=== PATIENT | female | born 1950 | race Caucasian/White ===

== ENCOUNTER 2024-01-09 12:00 | Outpatient (RCR) | payer MEDICARE, SELFPAY ==
[2024-01-09 12:08] VITALS: BMI 32.8
[2024-01-09 12:09] VITALS: BP 118/82; PULSE 80; TEMP 36.3
--- NOTE | 2024-01-09 13:21 | PC.NURSE ---
Tran came to my office and stated she is not going to be able to come to the program as she just read the air quality is going to be poor along with the humidity which exacerbates her COPD sxs. She was anxious when she came into my office and presented with some wheezing. Practicing pursed lip breathing. When she slowed her breathing down she felt better. She stated she feels better when she is home as she has the air conditioning on high and feels it is not cold enough for her here. Plans on using her nebulizer when she gets home. Her is coming to pick her up. She is drinking cold water. She stated she is safe and is going to call Gregoria to reschedule.
== END 2024-01-09 23:59 | disposition home or self-care (01) ==
LOC: HO.PHPA 12:00
PROVIDERS: Visit Provider Psychiatry & Neurology Psychiatry
DX: F33.2 Major depressive disorder, recurrent severe without psychotic features (principal); F41.1 Generalized anxiety disorder; F10.21 Alcohol dependence, in remission
CPT/HCPCS: 90791; 90853

== ENCOUNTER → 2024-03-26 11:15 | Outpatient (BNV) | payer MEDICARE, SELFPAY | PROVIDERS: Visit Provider Psychiatry & Neurology Psychiatry | DX: F33.2 Major depressive disorder, recurrent severe without psychotic features (principal); F41.8 Other specified anxiety disorders; R29.818 Other symptoms and signs involving the nervous system; R41.89 Other symptoms and signs involving cognitive functions and awareness | CPT/HCPCS: 90792; 90834 ==

== ENCOUNTER 2024-04-03 11:15 | Outpatient (RCR) | payer MEDICARE, SELFPAY ==
[2024-03-26 09:39] VITALS: BP 124/82; PULSE 80; TEMP 37.1
[2024-03-26 09:42] VITALS: BMI 31.7
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
--- NOTE | 2024-03-28 15:04 | HO.PHP ---
Client's case has been opened and reviewed in team
--- NOTE | 2024-04-02 22:25 | HO.PHPPROGNO ---
Subjective Subjective Date of Service: 04/02/24 Reason For Visit: MDD Interim History: Patient seen for follow-up, anticipating discharge at the end of program today.? Reports no acute issues or concerns. Medication compliant, medications well-tolerated. Denies any adverse effects.? I'd like to leave tomorrow . Patient is requesting to finish up her time here at [facility]. I'm feeling good...back to where I was about a year ago . Feels she has gotten as much from the program as she needed. She feels the Rexulti is working in full now, and has stabilizer. Reports energy is good, sleeping well. Had been sleeping 15-16 hrs before, now normal amount of 8 or 9 hours. APpetite intact. SHe reports enjoying her weekend I cooked and cooked . Has not cooked in a long time, but is feleing more motivated. SHe notes not wanting to miss any further soccer games of her grandchildren. She reports an upcoming appointment with her provider Stiven Cardona. She still has a rough, sardonic edge but appears in good spirits and at baseline. She also admits there is a a peer in groups that annoys her but she has tolerated all last week and this week. She could not be encouraged to stay, Yep, no thanks, I'm good Mood is stable.? Denies any hopelessness or SI. Denies thoughts of harming self or others at this time. Denies any aggressive ideation or HI. Denies any paranoia or AH or VH. Sleep, appetite, energy stable. Medication Compliance: Yes Side effects from medications: No Attending Groups: Yes Mental Status Exam Mental Status Exam Narrative: Alert, oriented, in no acute distress. Calm, cooperative. Mood stable, affect bright, irritable edge, appropriate, no lability. Speech normal. Thought process linear, coherent, more goal-directed. Thought content related to stressors, future-oriented, denies any helplessness, hopelessness or SI.? No aggressive ideation or HI. No paranoia or delusional content elicited. No evidence of psychosis. Insight and judgment fair-good. Diagnostics Vital Signs (24Hr): BMI result Body Mass Index 31.7 Assessment & Plan Assessment & Plan (1) MDD (major depressive disorder), recurrent severe, without psychosis: Status: Acute Code(s): F33.2 - Major depressive disorder, recurrent severe without psychotic features (2) Other specified anxiety disorders: Status: Acute Code(s): F41.8 - Other specified anxiety disorders (3) Neurocognitive deficits: Status: Acute Code(s): R29.818 - Other symptoms and signs involving the nervous system; R41.89 - Other symptoms and signs involving cognitive functions and awareness (4) Functional neurological symptom disorder with attacks or seizures: Status: Acute Code(s): F44.5 - Conversion disorder with seizures or convulsions (5) PTSD (post-traumatic stress disorder): Status: Acute Code(s): F43.10 - Post-traumatic stress disorder, unspecified (6) Alcohol dependence in sustained full remission: Status: Acute Code(s): F10.21 - Alcohol dependence, in remission Plan Patient requesting discharge AMA No acute safety concerns, appears to be close to or approaching baseline Feels she is doing well and woudl like to prioritize time with family over continued participation PLans to discharge from [facility] after completing the day today Continue regular medications Refills sent to pharmacy - brexpiprazole Will defer further medication management to outpatient provider Safety plan reviewed Patient educated on: diagnosis, medication risk/benefits and substance abuse Informed Consent: understands Reason for contiued partial hosp. stay Substantial Risk for: stable for discharge and other Certification I certify that partial hospital treatment is medically necessary due to the symptoms and problems resulting from the patient's mental illness and the failure to treat the patient at the partial hospital level of care would likely result in the patient requiring inpatient psychiatric care which could not be prevented at a less intensive level of care. Total time managing care of this patient today _45___ minutes. Discharge Plan Discharge Attending provider: Lisa Chew Medications: Continued teriparatide [Forteo] 20 mcg/dose (600mcg/2.4mL) Pen Injector 20 mcg SUBCUT DAILY Patient Comments: New medication patient has not started. Filled 03/25/24. Rexulti 0.25 mg Tablet 0.25 mg PO DAILY Qty: 30 0RF losartan 50 mg tablet 50 mg PO DAILY gabapentin 400 mg capsule 1,200 mg PO BEDTIME sertraline 100 mg tablet 200 mg PO DAILY hydroxyzine HCl 50 mg tablet 50 mg PO TID PRN (Reason: Anxiety) amlodipine 5 mg tablet 5 mg PO DAILY albuterol sulfate 90 mcg/actuation HFA aerosol inhaler 2 puff inhalation Q4H PRN (Reason: wheezing) lacosamide 200 mg tablet 200 mg PO BID Trelegy Ellipta 100-62.5-25 mcg blister with device 1 ea INHALATION DAILY Stand Alone Forms: Patient Portal Discharge page Patient Education: Breathing Techniques (GEN), Depression in Older Adults (DC) Print Language: Mauritanian
== END 2024-04-03 23:59 | disposition home or self-care (01) ==
LOC: HO.PHPA 11:15
PROVIDERS: Visit Provider Psychiatry & Neurology Psychiatry
DX: F33.2 Major depressive disorder, recurrent severe without psychotic features (principal); F41.8 Other specified anxiety disorders; R29.818 Other symptoms and signs involving the nervous system; R41.89 Other symptoms and signs involving cognitive functions and awareness; F44.5 Conversion disorder with seizures or convulsions; F43.10 Post-traumatic stress disorder, unspecified; F10.21 Alcohol dependence, in remission
CPT/HCPCS: 90791; 90853

== ENCOUNTER 2024-09-26 09:10 | Outpatient (REF) | payer MEDICARE, SELFPAY ==
[2024-09-26 11:02] LABS: MANUAL DIFF FLAG NO
[2024-09-26 11:17] LABS: Basophils Absolute Auto 0.1 X10*3/uL (0.0-0.2); Basophils Percent Auto 0.6 % (0-2); Eosinophils Absolute Auto 0.5 X10*3/uL (0.0-0.4); Eosinophils Percent Auto 4.3 % (0-4); Hematocrit 40.1 % (37.0-47.0); Hemoglobin 13.4 g/dl (12.0-16.0); Imm Gran Abs Auto 0.05 X10*3/uL (0.00-0.03); Imm Gran Pct Auto 0.5 % (0.0-0.4); Lymphocytes Absolute Auto 2.2 X10*3/uL (1.2-4.9); Lymphocytes Percent Auto 20.3 % (20-40); Mean Corpuscular HGB Conc 33.4 g/dl (31.0-35.0); Mean Corpuscular Volume 86.8 fL (80.0-98.0); Mean Platelet Volume 10.3 fL (9.4-12.3); Monocytes Absolute Auto 0.9 X10*3/uL (0.1-1.2); Monocytes Percent Auto 8.6 % (2-11); Neutrophils Percent Auto 65.7 % (45-73); Platelet Count 269 X10*3/uL (160-400); Red Blood Count 4.62 X10*6/uL (4.20-5.50); White Blood Count 10.6 X10*3/uL (4.8-10.8)
[2024-09-26 11:20] LABS: Appearance Urine Clear; Color Urine Yellow; Glucose Urine UA Negative (Negative); Leukocyte Esterase Urine Small (1+) (Negative); Nitrite Urine Negative (Negative); PH 5.5 (5.0-9.0); UMIC TRIGGER UACC YES; Urine Blood Negative (Negative); Urine Ketones Negative (Negative); Urine Protein Negative (Neg-Trace)
[2024-09-26 11:38] LABS: Anion Gap 12 (12-20); Blood Urea Nitrogen 27 mg/dL (9-16); Calcium 9.4 mg/dL (8.4-10.2); Carbon Dioxide 27 mmol/L (22-29); Chloride 103 mmol/L (96-108); Estimated Glomerular Filt Rate 40; Glucose Random 101 mg/dL (60-115); Phosphorus 3.4 mg/dL (2.7-4.5); Potassium 4.4 mmol/L (3.3-5.1); Sodium 138 mmol/L (135-145)
[2024-09-26 11:38] LABS: Bacteria Urine None Seen (None Seen); Hyaline Casts Urine 0-2 /LPF (0-2); RBC Urine 0-2 /HPF (0-2); UACC Culture Trigger YES; WBC Urine 0-5 /HPF (0-5)
[2024-09-26 11:47] LABS: Parathyroid Hormone Intact 132.6 pg/mL (8.7-77.1)
[2024-09-26 11:49] LABS: Vitamin D 25-OH Total 60.9 ng/mL (>30)
== END 2024-09-26 09:11 | disposition home or self-care (01) ==
LOC: HO.WFDLDS 09:10
PROVIDERS: Visit Provider Internal Medicine
DX: N17.9 Acute kidney failure, unspecified (principal)
CPT/HCPCS: 36415; 80048; 81001; 82306; 82550; 83970; 84100; 84300; 85025; 87086

== ENCOUNTER 2024-11-18 08:39 | Outpatient (REF) | payer MEDICARE, SELFPAY ==
--- OUTSIDE RECORDS SUMMARY | 2024-11-18 08:47 | XMS_ITS | Referral Summary ---
Author Organization [facility] Address [address] [place] [address] Care Team Providers Care Fire Watchman Name Role Phone JessicaDev Filipe Primary Care Provider [phone] Allergies No known active allergies Social History Tobacco Use Types Packs/Day Years Used Date Smoking Tobacco: Never Assessed Comments No Sex and Gender Information Value Date Recorded Sex Assigned at Not on file Legal Sex Female 6:43 AM EDT Gender Identity Not on file Sexual Orientation Not on file Last Filed Vital Signs Vital Sign Reading Time Taken Comments Blood Pressure 138/66 06/25/2022 3:30 PM EST Pulse 93 06/25/2022 3:30 PM EST Temperature 37.1 ??C (98.7 ??F) 06/25/2022 1:03 PM ES T Respiratory Rate 20 06/25/2022 3:30 PM EST Oxygen Saturation 92% 06/25/2022 3:30 PM EST Inhaled Oxygen Concentration - - Weight - - Height - - Body Mass Index - - Plan of Treatment Not on file Insurance [facility] Care Teams Fire Watchman Relationship Specialty Start Date End Date Dev Lopez [address] [place] [id number] PCP - General Internal Medicine 06/25/22
--- OUTSIDE RECORDS SUMMARY | 2024-11-18 08:47 | XMS_ITS | Encounter Summary ---
Author Organization [email or web address] [facility] Address [address] [place] [address] [address] [place] [address] Care Team Providers Care Clothes Drier Repairer Name Role Phone Unavailable Primary Care Provider Unavailabl e Encounter Details Date Type Department Care Team (Late st Contact Info) Description 03/01/2023 Abstract [facility] [address] [place] [address] Bushra Shepherd DMD Social History Tobacco Use Types Packs/Day Years Used Date Smoking Tobacco: Former Cigarettes Smokeless Tobacco: Former Comments Unknown Sex and Gender Information Value Date Recorded Sex Assigned at Female 05/02/2022 10:26 AM EDT Legal Sex Female 10:26 AM EDT Gender Identity Female 01/27/2023 9:14 AM EDT Sexual Orientation Choose not to disclose 2022 9:14 AM EDT documented as of this encounter Plan of Treatment Upcoming Encounters Date Type Department Care Team (Late st Contact Info) Description 11/21/2024 8:00 AM EDT Office Visit [facility] [address] [place] [address] Ugo Richardelendonna [address] [place] [address] 04/21/2025 8:00 AM EDT Office Visit [facility] [address] [place] [address] Diana Farmer documented as of this encounter Visit Diagnoses Not on filedocumented in this encounter
--- OUTSIDE RECORDS SUMMARY | 2024-11-18 08:47 | XMS_ITS | Clinical Summary ---
Author Organization [employer] Address [address] [facility] [address] [place] [address] Care Team Providers Care Costumer Assistant Name Role Phone Unavailable Primary Care Provider Unavailabl e Allergies Active Allergy Reactions Criticality Noted Date Comments Aripiprazole 01/27/2023 Codeine Diarrhea 06/01/2009 Other reaction(s): abdominal pain Duloxetine Other 06/01/2009 seizure-like activity Duloxetine Hcl 06/08/2023 Other reaction(s): out of body experience Erythromycin Rash Low 06/08/2023 Other reaction(s): loose stools Gentamicin 06/08/2023 Other reaction(s): full body rash Lamotrigine 06/08/2023 Other reaction(s): full body rash Oxybutynin 06/08/2023 Other reaction(s): light headed fall down Venlafaxine Other 06/01/2009 Other reaction(s): confusion outer-body experience Medications albuterol 108 (90 Base) MCG/ACT inhaler inhale 2 puffs Inhalation 4 times a day as needed Wheezing/Shortn ess of Breath 2 Active Trelegy Ellipta 100-62.5-25 MCG/ACT aerosol powder Inhale 1 puff in the morning. 3 Active sertraline (Zoloft) 100 MG tablet TAKE 2 TABLETS BY MOUTH EVERY DAY 0 Active hydrOXYzine HCl (Atarax) 50 MG tablet Take 50 mg by mouth if needed in the morning, at noon, and at bedtime. 3 Active amLODIPine (Norvasc) 5 MG tablet Take 1 tablet by mouth. 3 Active lacosamide (Vimpat) 200 mg tablet tablet Take 200 mg by mouth. 3 Active gabapentin (Neurontin) 400 MG capsule take 2 capsules By Mouth Daily at bedtime 10/30/202 3 Active losartan (Cozaar) 50 MG tablet Take 50 mg by mouth in the morning. 3 Active Sodium Fluoride (PreviDent 5000 Booster Plus) 1.1 % paste Apply 1 Application. to teeth 2 times daily. 112 g 3 4 Active Rexulti 0.25 MG tablet Take 1 tablet by mouth Once per day. 4 Active B-D UF III MINI PEN NEEDLES 31G X 5 MM misc use daily with Forteo pen 5 Active lurasidone (Latuda) 40 MG tablet Take 1 tablet by mouth once a day with at least 350 calories of food 5 Active predniSONE (Deltasone) 20 MG tablet TAKE 2 TABLETS BY MOUTH DAILY FOR 5 DAYS WITH food 5 Active rosuvastatin (Crestor) 40 MG tablet Take 40 mg by mouth. 5 Active teriparatide (Forteo) injection See Instructions, injecy 20 mcg under the skin once Daily,rotate injection sites, # 2.4 mL, 11 Refills, Maintenance, 09/02/24 6:47:00 PM EST, [facility], 162, cm, 08/26/24 13:06:00 EST, Height, 81.8, kg, 07/16/24 13:54:00 EST, Dry Weight 4 Active Active Problems Problem Noted Date Diagnosed Date Long COVID 10/24/2024 Rotator cuff arthropathy of right shoulder 10/15 Anxiety 03/11/2024 Balance problem 03/11/2024 Chronic obstructive lung disease 03/11/2024 Class 1 obesity 03/11/2024 Colitis 03/11/2024 COVID 03/11/2024 Elevated serum creatinine 03/11/2024 Esophageal dysmotility 03/11/2024 Exposure to COVID-19 virus 03/11/2024 Hematochezia 03/11/2024 Hearing loss 03/11/2024 HTN (hypertension) 03/11/2024 Hypercalcemia 03/11/2024 Lumbar disc disorder 03/11/2024 Major depression 03/11/2024 Memory loss 03/11/2024 Migraine 03/11/2024 Mitral valve regurgitation 03/11/2024 Multiple closed fractures of ribs of left side 0 03/11/2024 Multiple nodules of lung 03/11/2024 Osteoporosis, postmenopausal 03/11/2024 Pancolitis 03/11/2024 Periodic limb movement disorder 03/11/2024 Restless leg 03/11/2024 Pneumonia 03/11/2024 Pubic bone fracture 03/11/2024 Retinal hemorrhage 03/11/2024 Seizure disorder 03/11/2024 Tachycardia 03/11/2024 Urge incontinence of urine 03/11/2024 Dental calculus 03/07/2024 Dental plaque 03/07/2024 Closed extraarticular fracture of distal radius 09/11/2018 Overview (10/24/2024): Problem Code: S52.551P; Problem Code Type: ICD-10; Status: 'A'; Closed fracture of third metatarsal bone of righ t foot 04/25/2017 Overview (10/24/2024): Problem Code: S92.334A; Problem Code Type: ICD-10; Status: 'A'; Closed trimalleolar fracture 03/14/2017 Overview (10/24/2024): Problem Code: S82.851D; Problem Code Type: ICD-10; Status: 'A'; Resolved Problems Problem Noted Date Diagnosed Date Resolved Date Obstructive sleep apnea syndrome 03/11/2024 10/14/2024 Encounters Date Type Department Care Team Description 10/24/2024 8:00 AM EDT Office Visit [facility] [address] [place] [address] Deloris Richard 10/14/2024 9:00 AM EDT Office Visit [facility] [address] [place] [address] Diana Farmer from Last 3 Months Social History Tobacco Use Types Packs/Day Years Used Date Smoking Tobacco: Former Cigarettes Smokeless Tobacco: Former Tobacco Cessation:Counseling Given: Not Answered Alcohol Use Standard Drinks/Week Comments Defer 0 (1 standard drink = 0.6 oz pur e alcohol) Comments Unknown Sex and Gender Information Value Date Recorded Sex Assigned at Female 05/02/2022 10:26 AM EDT Legal Sex Female 10:26 AM EDT Gender Identity Female 01/27/2023 9:14 AM EDT Sexual Orientation Choose not to disclose 2022 9:14 AM EDT Last Filed Vital Signs Vital Sign Reading Time Taken Comments Blood Pressure 120/80 10/24/2024 8:10 AM EDT Pulse 65 03/07/2024 8:06 AM EDT Temperature - - Respiratory Rate - - Oxygen Saturation - - Inhaled Oxygen Concentration - - Weight - - Height - - Body Mass Index - - Plan of Treatment Upcoming Encounters Date Type Department Care Team (Late st Contact Info) Description 11/21/2024 8:00 AM EDT Office Visit [facility] [address] [place] [address] Ugo Richardelendonna [address] [place] [address] 04/21/2025 8:00 AM EDT Office Visit [facility] [address] [place] [address] Diana Farmer Health Maintenance Due Date Last Done Comments CT Colonography 1949 Colonoscopy 1949 Colorectal Cancer Screening 1949 Depression Screening 1949 FIT DNA/Cologuard 1949 FIT 1949 FOBT 1949 Lipid Panel 1949 SDOH Screening 1949 Sigmoidoscopy 1949 Alcohol/Substance Use Screening 1961 Hepatitis C Screening 1967 DTaP/Tdap/Td Vaccines (1 - Tdap) 02/29/1968 Zoster Vaccines (2 of 3) 08/11/2013 06/16/2013 RSV Patients and Patients Aged 60 years or older (1 - 1-dose 75+ series) 02/29/2024 COVID-19 Vaccine ( season) 2024 03/14/2024, 05/11/2023, 04/16/2022, Additional history exists Dental Oral Exam 04/16/2025 10/14/2024, 11/2023, 06/06/2023, Additional history exists Dental Prophylaxis 04/16/2025 10/14/2024, 0 03/07/2024, 06/08/2023, Additional history exists Dental X-Ray: Bitewings 10/15/2025 10/15/19, 06/06/2023, 04/01/2014 Tobacco Screening 10/24/2025 10/24/2024 Dental X-Ray: Full Mouth 06/07/2026 06/06/2023, 03/05 Pneumococcal Vaccine: 50+ Years Completed 05/11/2023, 04/24/2015 Influenza Vaccine Completed 03/14/2024, , 04/16/2022, Additional history exists HIB Vaccines Aged Out No longer eligi ble based on patient's age to complete this topic HPV Vaccines Aged Out No longer eligi ble based on patient's age to complete this topic Hepatitis A Vaccines Aged Out No long er eligible based on patient's age to complete this topic Hepatitis B Vaccines Aged Out No long er eligible based on patient's age to complete this topic IPV Vaccines Aged Out No longer eligi ble based on patient's age to complete this topic Meningococcal B Vaccine Aged Out No l onger eligible based on patient's age to complete this topic Meningococcal Vaccine Aged Out No jasmina josefa eligible based on patient's age to complete this topic RSV under 20 months Aged Out No longe r eligible based on patient's age to complete this topic Rotavirus Vaccines Aged Out No longer eligible based on patient's age to complete this topic Procedures Procedure Name Priority Date/Time Associated Diagnosis Comments 28 MOB RESIN-BASED COMPOSITE - 3 SURF, POSTERIOR Routine 10/24/2024 8:00 AM EDT CASE PRESENTATION, DETAILED AND EXTENSIVE TREATMENT PLANNING Routine 10/24/2024 8:00 AM EDT PERIODIC ORAL EVALUATION - ESTABLISHED PATIENT Routine 10/14/2024 9:00 AM EDT INTRAORAL - PERIAPICAL EACH ADDITIONAL RADIOGRAPHIC IMAGE Routine 10/14/2024 9:00 AM EDT INTRAORAL - PERIAPICAL FIRST RADIOGRAPHIC IMAGE Routine 10/14/2024 9:00 AM EDT BITEWINGS - 2 RADIOGRAPHIC IMAGES Routine 10/14/2024 9:00 AM EDT ORAL HYGIENE INSTRUCTIONS Routine 2024 9:00 AM EDT CASE PRESENTATION, DETAILED AND EXTENSIVE TREATMENT PLANNING Routine 10/14/2024 9:00 AM EDT PROPHYLAXIS - ADULT Routine 10/14/2024 9 :00 AM EDT INTRAORAL - COMPLETE SERIES OF RADIOGRAPHIC IMAGES Routine 06/06/2023 8:00 AM EST from Last 3 Months or Most Recently Relevant to Health Maintenance Insurance [address] [place] [address] DENTAL - HSN PARTIAL (MEDICAID) [address] [place] [address] [place] [id number] [address] [place] [address] [place] [address]
--- OUTSIDE RECORDS SUMMARY | 2024-11-18 08:47 | XMS_ITS | Data Portability ---
Author Organization [place] - [facility], [facility] Address [address] [place] [address] Assessment No assessment recorded. Plan of Treatment Reminders Order Date Submit Date Provider Last Modified By Organization Details Last Modified Time Details Appointments None recorded. Lab None recorded. Referral physical therapist referral - R shldr painrom 2024 025 [employer] [facility] - [address], [address], [place], [address], 5 10:52:51 Procedures None recorded. Surgeries None recorded. Imaging XR, shoulder, 2 or more view - 4v R shldr. room 212 2024 025 [facility], [address], [address], [place], [address], 5 10:52:51 XR, cervical spine, 1 view - cspine. room [facility] 2024 025 [employer] [facility], [address], [address], [place], [address], 5 10:52:51 Medication Orders None recorded. Patient TargetsNo targets recorded. Patient InstructionsNo instructions recorded. Reason for Referral Physical Therapist Referral for Pain of right shoulder joint R shldr painrom Referring Physician: Kali Hernandez, Orthopedic Surgery, Encounter Date: 10/15/2024 Results Created Date Observation Date Name Description Value Unit Range Abnormal Flag Note LastModifiedBy Organization Detail LastModifiedTime 10/16/19 25 10/15/2024 XR, cervi lidya spine , 1 view [email or web address] ?Encry pted=s hAaTro YD8dLq bEUv6g %2BXZw aYqtaq 0bqfl% 2Fg9IQ a4ajBk vP9nXo QUaueC m3YtLR FvZlgJ JJ8mAn HZtai3 6o3601 AC0KqY 3uMU6u nKiQtr MwF INTERFACE [facility] [address], [place], [address], 10/15/2024 10:26:50 10/16/19 25 10/15/2024 XR, cervi lidya spine , 1 view [email or web address]:/ [email or web address] ?Encry pted=s hAaTro YD8dLq bEUv6g %2BXZw aYqtaq 0bqfl% 2Fg9IQ a4ajBk vP9nXo QUaueC m3YtLR FvZlgJ JJ8mAn HZtai3 0f7643 AC0KqY 3uMU6u nKiQtr MwF INTERFACE [facility] [address], [place], [address], 10/15/2024 10:26:52 10/16/19 25 10/15/2024 XR, shoul harvey, 2 or more view [email or web address]:/ [email or web address] ?Encry pted=s hAaTro YD8dLq bEUv6g %2BXZw aYqtaq 0bqfl% 2Fg9IQ a4ajBk vP9nXo QUaueC m3YtLR FvZlgJ JJ8mAn HZtai3 3q2998 AC0KqY 3uMU6u mKiQtr MwF INTERFACE [facility] [address], [place], [address], 10/15/2024 10:29:18 10/16/19 25 10/15/2024 XR, shoul harvey, 2 or more view [email or web address] ?Encry pted=s hAaTro YD8dLq bEUv6g %2BXZw aYqtaq 0bqfl% 2Fg9IQ a4ajBk vP9nXo QUaueC m3YtLR FvZlgJ JJ8mAn HZtai3 5z0014 AC0KqY 3uMU6u mKiQtr MwF INTERFACE [facility] [address] [facility] [address], [place], [address], 10/15/2024 10:29:20 Result Notes None recorded. Problems Name Problem SNOMED Code Status Onset Date Resolution Date Notes Provider Name and Address Organization Details Recorded Time No complaint s 638574222 Active Status: 'I'; Not Available [facility] 4 09:15:45 Rotator cuff arthropat hy of right shoulder 940906099824 27440 Active 2024 Kali Hernandez PA-C [address] [facility] [address], [place], [address] , [facility] 5 10:59:54 Closed fracture of third metatarsa l bone of right foot 262091676592 84905 Active 2016 Problem Code: S92.334A ; Problem Code Type: ICD-10; Status: 'A'; Not Available [facility] 4 11:42:31 Closed trimalleo lar fracture 0367158 Active 2016 Problem Code: S82.851D ; Problem Code Type: ICD-10; Status: 'A'; Not Available [facility] 4 11:42:31 Closed extraarti cular fracture of distal radius 398463263 Active 2018 Problem Code: S52.551P ; Problem Code Type: ICD-10; Status: 'A'; Not Available [facility] 4 11:42:31 Problem Notes None recorded. Procedures Surgical History Date Name Laterality Status Provider Name and Address Organization Details Recorded Time 5 Sports Shoulder completed Kali Hernandez PA-C [address], [place], [address], [facility] 10/15/2024 10:59:47 Imaging Results Imaging Date Name Status LastModified by Organiz ation Details LastModified Time 10/15/2024 XR, cervical spine, 1 view completed INTERFACE [facility] [address], [place], [address], 10/15/2024 10:26:50 10/15/2024 XR, cervical spine, 1 view completed INTERFACE [facility] [address], [place], [address], 10/15/2024 10:26:52 10/15/2024 XR, shoulder, 2 or more view completed INTERFACE [facility] [address], [place], [address], 10/15/2024 10:29:18 10/15/2024 XR, shoulder, 2 or more view completed INTERFACE [facility] [address], [place], [address], 10/15/2024 10:29:20 Procedure Notes None recorded. Medical Equipment None Reported. Allergies Allergen ID Allergen Name Allergen Category Reaction Reaction Severity Criticality Documentation Date Start Date Code Code System Note Provider Name and Address Organization Details Recorded Time 223867 Abilify medicatio n Not available Not available Not available 10/15/2024 30995 3 RxNorm Lisbet rivera [facility] 5 10:18:15 548871 codeine medicatio n Not available Not available Not available 10/15/2024 2670 RxNorm Lisbet rivera [facility] 5 10:18:21 Medications Name Sig Start Date Stop Date Status Note LastModified by Organization Details LastModified Time losartan 50 mg tablet TAKE 1 TABLET BY MOUTH DAILY active Not Available Not Available No t Available prednisone 20 mg tablet TAKE 2 TABLETS BY MOUTH DAILY FOR 5 DAYS WITH food 10/15 completed Not Available Not Available Not Available gabapentin 400 mg capsule take 3 capsules By Mouth Daily at bedtime active Not Available Not Available No t Available sertraline 100 mg tablet Take 2 tablet by mouth once a day active Not Available Not Available No t Available hydroxyzine HCl 50 mg tablet Take 1 tablet by mouth three times a day as needed active Not Available Not Available No t Available amlodipine 5 mg tablet TAKE 1 TABLET BY MOUTH ONCE DAILY active Not Available Not Available No t Available sulfamethox azole 800 mg-trimetho prim 160 mg tablet TAKE 1 TABLET BY MOUTH TWICE DAILY FOR 5 DAYS WITH plenty OF WATER active Not Available Not Available No t Available pseudoephed rine-guaife nesin ER 80-700 mg tablet,exte nded release 1-2 PO Q 4 PRN PAIN(GIVE N AT [facility] AT TIME OF SURGERY 12/18/15) 2015 active Statu s: 'Curr ent'; Not Available Not Available Not Available albuterol sulfate HFA 90 mcg/actuati on aerosol inhaler inhale 2 puffs Inhalatio n Every 4 hours as needed for Wheezing/ Shortness of Breath active Not Available Not Available No t Available rosuvastati n 20 mg tablet TAKE 1 TABLET BY MOUTH DAILY active Not Available Not Available No t Available bupropion HCl XL 300 mg 24 hr tablet, extended release Take 1 tablet by mouth once a day active Not Available Not Available No t Available bupropion HCl XL 150 mg 24 hr tablet, extended release Take 1 tablet by mouth once a day active Not Available Not Available No t Available BD Ultra-Fine Mini Pen Needle 31 gauge x 3/16 use daily with Forteo pen active Not Available Not Available No t Available Vistaril Vistaril 25MG Capsule 2022 active Statu s: 'Curr ent'; Not Available Not Available Not Available teriparatid e 20 mcg/dose (560 mcg/2.24 mL) subcutaneou s pen injector injecy 20 mcg under the skin once Daily,rot ate injection sites active Not Available Not Available No t Available oxycodone HCl-oxycodo ne-ASA as directed one tab every 4 hours prn pain 11/30 completed Statu s: 'Disc ontin ued'; Not Available Not Available Not Available lacosamide 200 mg tablet TAKE 1 TABLET BY MOUTH TWICE DAILY active Not Available Not Available No t Available lurasidone 40 mg tablet Take 1 tablet by mouth once a day with at least 350 calories of food active Not Available Not Available No t Available lurasidone 20 mg tablet Take 1 tablet by mouth once a day with at least 350 calories of food active Not Available Not Available No t Available Rexulti 0.25 mg tablet TAKE 1 TABLET BY MOUTH EVERY DAY active Not Available Not Available No t Available Trelegy Ellipta 100 mcg-62.5 mcg-25 mcg powder for inhalation inhale 1 PUFF BY MOUTH ONCE DAILY active Not Available Not Available No t Available Vitals Date Recorded Body height Body mass index (BMI) Body weight Provider Name and Address Organization Details Last Updated DateTime 10/15/2024 160.02 cm 32.4 kg/m2 90253.4 g Lisbet Carter [place] - [facility] 10/15/2024 10:18:05 Social History None recorded. Functional Status None recorded. Mental Status None recorded. Family History Nothing Reported. Medical History No medical history recorded. Gynecological HistoryNo gynecological history recorded. Obstetrics History GPAL:G 0 P 0 0 0 0 Past Encounters Encounter ID Performer Location Encounter Start Date Encounter Closed Date Diagnosis/Indication Diagnosis SNOMED-CT Code Diagnosis ICD10 Code Diagnosis Note [id number] [facility] [address] [place] [address] 10/15/2024 09:46:00 11/01/2024 15:38:26 Pain of right shoulder joint [id number] 1262929 M25.511 Rotator cu ff arthropathy of right shoulder 5711110432 9655907 M12.811 Health Concerns Section Related Observation LastModified by Organization Detai ls LastModified Time None Recorded Concern Status LastModified by Organization Details LastModified Time None Recorded Advance Directives Directive None Recorded Payers Encounter Date Sequence Insurance Name Policy Number Policy Bailey Covered Member ID Bailey Member ID Guarantor Name 10/15/2024 1 [facility] MEDICARE ADVANTAGE PLAN (MEDICARE REPLACEMENT HMO) [id number] 2 Tran Travis [id number] Notes Date Note Type Note Provider Name and Address Organization Details Recorded Time 10/15/2024 text/html I am seeing this patient under the supervision of Dr. Schultz who was available but did not see the patient.HPI: Ms. Branham presents examination of her right shoulder. Very pleasant 74-year-old woman expansion diffuse and worsening pain to the right shoulder. Denies any specific trauma or injury however reports symptoms have been ongoing for several months. She has pain radiating from the shoulder all the way down the arm with limited ability to raise her using her arm overhead. She has trouble at night sleeping. She denies any paresthesias or paralysis. She also denies any specific injury.PFMSH and ROS has been reviewed, updated, and is located in the patient? s chart.PHYSICAL EXAMINATION: The patient is well appearing and in no apparent distress. Alert and oriented x 3. Gait is symmetric.Left shoulder demonstrates: Full range of motion, 5/5 strength including rotator cuff and periscapular musculature. Good muscle bulk and strength without atrophy. No evidence of instability of the shoulder. Negative impingement signs. Negative AC joint tenderness.Right shoulder demonstrates: Limited active range of motion secondary to pain. Passively tolerated forward elevation to 170 degrees, externally rotates 60, internal rotates to L1. Moderate bursal irritability, with positive impingment test, No AC joint irritability. Good strength when firing the cuff to external rotation. Significant pain and weakness through resistive horizontal, scaptation, and for flexion resistance. No anterior instabitly noted with negative apprehension sign.Cervical ROM was age appropriately normal without radicular symptoms.No erythema, no redness, no warmth. Peripheral, vascular, lymphatic examination, skin, neurological, coordination, reflexes, sensation are within normal limits.X-RAY REPORT: X-rays were ordered, obtained and reviewed today at [facility]. Four views of the right shoulder demonstrate type III acromion, AC joint demonstrates moderate to significant arthritic changes with hypertrophic changes to the distal clavicle, glenohumeral joint is well preserved. Reactive and degenerative changes to the greater tuberosity. Lateral C-spine demonstrated advanced multilevel arthritic changesIMPRESSION: Right shoulder degenerative cuff diseasePLAN: Reviewed and discussed at length symptoms and treatment options to include subacromial injection and referral to physical therapy for range of motion and improvement in overall strength. She was very keen on following conservative care. Injection performed today without incident. She is to follow up with us as needed. Kali Hernandez PA-C [address] [facility] [address], [place], [address], [place] - [facility] 10/15/2024 11:00:12 OBGyn Episode No OBEpisode recorded.
--- OUTSIDE RECORDS SUMMARY | 2024-11-18 08:47 | XMS_ITS | Clinical Summary ---
Author Organization [facility] Address [address] [place] [address] Care Team Providers Care Box Bender Name Role Phone JessicaDev Filipe Primary Care Provider [phone] Allergies No known active allergies Social History [...] Mass Index - - Plan of Treatment Health Maintenance Due Date Last Done Comments Cologuard 1950 Colon Cancer Screening 1950 Colonoscopy 1950 FOBT / Fit Test 1950 Hepatitis C Screening 1949 Sigmoidoscopy 1949 DTaP,Tdap,and Td Vaccines (1 - Tdap) 1971 Osteoporosis Screening 1999 Pneumococcal Vaccine: 50+ Ye ars (1 of 1 - PCV) 1999 Zoster Vaccines (1 of 2) 1999 RSV Vaccine (60+ years old a nd patients) (1 - 1-dose 75+ series) 02/29/2024 COVID-19 Vaccine (2023-2 5 season) 2024 Alcohol/Substance Use Screening 07/03/2024 Depression Screening and Follow-Up 07/03/2024 Health Care Proxy Review 07/03/2024 Social Drivers of Health Susan ual Screening 07/03/2024 Influenza Vaccine (Season Ended) 2025 Hepatitis B Vaccines Aged Out No long er eligible based on patient's age to complete this topic Insurance [facility] Care Teams Box Bender Relationship Specialty Start Date End Date Dev Lopez [address] [place] [id number] PCP - General Internal Medicine 06/25/22
[2024-11-18 11:02] LABS: MANUAL DIFF FLAG NO
[2024-11-18 11:21] LABS: Basophils Absolute Auto 0.1 X10*3/uL (0.0-0.2); Basophils Percent Auto 0.9 % (0-2); Eosinophils Absolute Auto 0.3 X10*3/uL (0.0-0.4); Eosinophils Percent Auto 3.6 % (0-4); Imm Gran Abs Auto 0.04 X10*3/uL (0.00-0.03); Imm Gran Pct Auto 0.5 % (0.0-0.4); Lymphocytes Absolute Auto 1.8 X10*3/uL (1.2-4.9); Lymphocytes Percent Auto 23.6 % (20-40); Mean Corpuscular HGB Conc 32.5 g/dl (31.0-35.0); Mean Corpuscular Hemoglobin 28.2 pg (27.0-33.0); Mean Corpuscular Volume 86.8 fL (80.0-98.0); Monocytes Absolute Auto 0.7 X10*3/uL (0.1-1.2); Monocytes Percent Auto 8.5 % (2-11); Neutrophils Absolute Auto 4.9 x10*3/uL (2.0-8.3); Neutrophils Percent Auto 62.9 % (45-73); Platelet Count 262 X10*3/uL (160-400); Red Blood Count 4.61 X10*6/uL (4.20-5.50); Red Cell Distribution Width 12.7 % (11.0-16.0); White Blood Count 7.8 X10*3/uL (4.8-10.8)
[2024-11-18 11:47] LABS: Anion Gap 14 (12-20)
[2024-11-18 11:55] LABS: Vitamin B12 576 pg/mL (200-900)
[2024-11-18 12:07] LABS: Alanine Aminotransferase 34 U/L (0-31); Albumin Level 4.5 g/dL (3.5-5.0); Alkaline Phosphatase 66 U/L (39-117); Aspartate Amino Transferase 41 U/L (5-31); Bilirubin Total 0.4 mg/dL (0.0-1.0); Blood Urea Nitrogen 26 mg/dL (9-16); Calcium 9.6 mg/dL (8.4-10.2); Carbon Dioxide 28 mmol/L (22-29); Chloride 102 mmol/L (96-108); Estimated Glomerular Filt Rate 55; Glucose Random 90 mg/dL (60-115); Iron 96 mcg/dL (30-160); Magnesium 1.8 mg/dL (1.6-2.6); Percent Iron Saturation 31 % (15-50); Phosphorus 2.6 mg/dL (2.7-4.5); Sodium 139 mmol/L (135-145); TSH reflex Free T4 1.48 uIU/mL (0.32-4.0); Total Iron Binding Capacity 310 mcg/dL (228-428); Total Protein 7.2 g/dL (6.5-8.0); Unsaturated Iron Binding 214 ug/dL
== END 2024-11-18 08:40 | disposition home or self-care (01) ==
LOC: HO.WFDLDS 08:39
PROVIDERS: Visit Provider Physician Assistant
DX: I12.9 Hypertensive chronic kidney disease with stage 1 through stage 4 chronic kidney disease, or unspecified chronic kidney disease (principal); J44.9 Chronic obstructive pulmonary disease, unspecified; N18.32 Chronic kidney disease, stage 3b; R42 Dizziness and giddiness; R73.9 Hyperglycemia, unspecified
CPT/HCPCS: 36415; 80053; 82607; 83540; 83735; 84100; 84443; 85025